=== PATIENT | female | born 1940 | race Caucasian/White ===

== ENCOUNTER 2017-06-20 23:45 | Emergency (ER) | payer OTHER ==
[~2017-06-20] VITALS: Ht 162.6 cm; Wt 99.8 kg
[~2017-06-20 23:45] MED LIST: LEVOTHYROXINE0.05 MG PO; NORCO 5-325 TA1 EACH PO
[2017-06-21] MEDS ORDERED: NORCO 5-325 TA1 EACH PO (00:50)
[2017-06-21] MEDS ORDERED: VALIUM5 MG PO (00:50)
[2017-06-21] MEDS ORDERED: MOBIC15 MG PO (00:52)
== END 2017-06-21 01:02 | disposition home or self-care (01) ==
LOC: ER 23:45
DX: M54.5 Low back pain (principal); E03.9 Hypothyroidism, unspecified; Z98.890 Other specified postprocedural states

== ENCOUNTER → 2021-12-14 | Outpatient (CLI) | payer OTHER ==
[~2021-12-14] MED LIST changes: +MOBIC15 MG PO; +VALIUM5 MG PO
== END ==
LOC: RAD 11:06
PROVIDERS: ATTEND Family Medicine
DX: M17.12 Unilateral primary osteoarthritis, left knee (principal); M85.862 Other specified disorders of bone density and structure, left lower leg; M47.819 Spondylosis without myelopathy or radiculopathy, site unspecified